=== PATIENT | male | born 1990 ===

== ENCOUNTER 2021-11-15 06:21 | Emergency (ER) | payer OTHER ==
[2021-11-15 07:13] LABS: Urine Bacteria NONE SEEN /hpf (None Seen); Urine Blood Negative /uL (Negative); Urine Specific Gravity 1.021 (1.001-1.035); Urine WBC <1 /hpf (0 - 3)
[2021-11-15 07:55] VITALS: BP 122/76
== END 2021-11-15 07:57 | disposition home or self-care (01) ==
LOC: ER 06:21
DX: R10.9 Unspecified abdominal pain (principal); M62.838 Other muscle spasm
CPT/HCPCS: 81001